=== PATIENT | female | born 1950 | race Caucasian/White ===

== ENCOUNTER 2018-10-04 12:55 | Emergency (ER) | payer OTHER ==
[~2018-10-04] VITALS: Ht 167.6 cm; Wt 77.3 kg
[2018-10-04 12:59] VITALS: Ht 167.6 cm; Wt 77.3 kg
--- NOTE | 2018-10-04 14:08 | ERD ---
ER Documentation Chief Complaint Chief Complaint NEAR SYNCOPAL EPISODE WITH VOMITING AND AN EPISODE OF HONORIO IN THE 20'S HPI Patient is a 68-year-old female with no medical problems who presents saying "I feel sick". The patient was brought in by ambulance. The patient was having lunch and took off her usual oxygen and then her oxygen saturation dropped and she had a near syncopal event. Paramedics had a heart rate dropped to the 20s when they were evaluating her but the heart rate is now back in the 80s. Blood sugar was normal. Blood pressure was 99/62 which is the patient's usual blood pressure per the paramedics. The patient's primary doctor is at [facility]. ROS All systems reviewed and are negative except as per history of present illness. Allergies Allergies: Coded Allergies: No Known Allergy (Unverified , 10/04/18) PMhx/Soc Medical and Surgical Hx: pt denies Medical Hx FmHx Family History: No diabetes Physical Exam Vitals Vital Signs Date Temp Pulse Resp B/P (MAP) Pulse Ox O2 O2 Flow FiO2 Time Delivery Rate 10/04/18 70 18 105/64 100 Room Air 14:27 (78) 10/04/18 98.2 70 16 120/70 100 12:59 (87) Physical Exam Const: No acute distress Head: Atraumatic Eyes: Normal Conjunctiva ENT: Normal External Ears, Nose and Mouth. Neck: Full range of motion. No meningismus. Resp: Clear to auscultation bilaterally Cardio: Regular rate and rhythm, no murmurs Abd: Soft, non tender, non distended. Normal bowel sounds Skin: Pale skin Back: No midline or flank tenderness Ext: No cyanosis, or edema Neur: Awake and alert Psych: Normal Mood and Affect Result Diagram: 10/04/18 1324 10/04/18 1324 Results 24 hrs Laboratory Tests Test 10/04/18 13:19 10/04/18 13:24 Bedside Glucose 124 mg/dL White Blood Count 4.6 10^3/ul Red Blood Count 3.45 10^6/ul Hemoglobin 10.0 g/dl Hematocrit 30.5 % Mean Corpuscular Volume 88.4 fl Mean Corpuscular Hemoglobin 29.0 pg Mean Corpuscular Hemoglobin Concent 32.8 g/dl Red Cell Distribution Width 13.9 % Platelet Count 222 10^3/UL Mean Platelet Volume 12.0 fl Immature Granulocytes % 0.200 % Neutrophils % 64.3 % Lymphocytes % 18.5 % Monocytes % 13.9 % Eosinophils % 2.4 % Basophils % 0.7 % Nucleated Red Blood Cells % 0.0 /100WBC Immature Granulocytes # 0.010 10^3/ul Neutrophils # 3.0 10^3/ul Lymphocytes # 0.9 10^3/ul Monocytes # 0.6 10^3/ul Eosinophils # 0.1 10^3/ul Basophils # 0.0 10^3/ul Nucleated Red Blood Cells # 0.0 10^3/ul Sodium Level 130 mmol/L Potassium Level 4.1 mmol/L Chloride Level 92 mmol/L Carbon Dioxide Level 30 mmol/L Anion Gap 8 Blood Urea Nitrogen 8 mg/dl Creatinine 0.46 mg/dl Est Glomerular Filtrat Rate mL/min > 60 mL/min Glucose Level 103 mg/dl Calcium Level 8.6 mg/dl Troponin I < 0.012 ng/ml Procedures/MDM EKG read by me: Rate/Rhythm: Regular rate and rhythm at a rate of 68 Intervals: Normal Impression: No evidence of ischemia or arrhythmia Patient is a 68-year-old female who presents with near syncope. I believe this is likely related to the fact that she took off her oxygen and the oxygen satur ation dropped temporarily. Laboratory studies show a mild anemia but she does not require transfusion. EKG shows a normal heart rate with sinus rhythm and no signs of ischemia. I believe outpatient management is appropriate at this time. Do not believe the patient requires admission to the hospital but she should have close follow-up with her primary doctor within 24-48 hours. She can return sooner for any worsening symptoms. She will be discharged back to the nursing facility. Departure Diagnosis: Primary Impression: Near syncope Additional Impression: Anemia Anemia type: unspecified type Qualified Codes: D64.9 - Anemia, unspecified Condition: Fair Patient Instructions: Anemia, Near Syncope, Unknown Referrals: Your doctor Additional Instructions: Call your primary care doctor TOMORROW for an appointment during the next 1-2 days.See the doctor sooner or return here if your condition worsens before your appointment time. YOVANA GARRISON MD Oct 04, 2018 14:08
[2018-10-04 14:27] VITALS: BP 105/64; PULSE 70; RESP 18
== END 2018-10-04 14:27 | disposition home or self-care (01) ==
LOC: E/R 12:55
DX: D64.9 Anemia, unspecified (principal)
CPT/HCPCS: 36415; 80048; 82962; 84484; 85025; 93005